=== PATIENT | male | born 2000 | race Hispanic/Latino ===

== ENCOUNTER 2020-09-01 09:41 | Emergency (ER) | payer OTHER, SELFPAY ==
[2020-09-01] MEDS ORDERED: Lidocaine 1% (PF) 30 ML VIAL ONE (12:44)
[2020-09-01] MEDS ORDERED: Boostrix 0.5 ML VIAL ONE (12:55)
== END 2020-09-01 14:01 | disposition home or self-care (01) ==
LOC: ERS 09:41
DX: L60.0 Ingrowing nail (principal)
CPT/HCPCS: 11750; 90471; 90715; J2001

== ENCOUNTER 2021-04-17 16:35 | Emergency (ER) | payer SELFPAY | END 2021-04-17 17:47 | disposition home or self-care (01) | LOC: ERS 16:35 | DX: L08.82 Omphalitis not of newborn (principal); F17.210 Nicotine dependence, cigarettes, uncomplicated | CPT/HCPCS: 99282 ==

== ENCOUNTER 2021-06-10 11:11 | Emergency (ER) | payer SELFPAY ==
[2021-06-10 12:57] LABS: Bacteria/HPF None Seen HPF (None Seen); Bilirubin Negative (Negative); Blood, Urine Negative (Negative); Clarity Extra Turbid (Clear); Glucose, Urine (Dipstick) Normal (Negative); Ketone, Urine Negative (Negative); Leukocyte Negative Leu/uL (Negative); Nitrite Negative (Negative); Protein, Urine (Dipstick) 30 mg/dL (Neg-Trace); RBC/HPF 0-3 HPF (0-3); Specific Gravity, Urine 1.028 (1.002-1.036); Squamous Epithelial None Seen HPF (0-3); Urobilinogen Normal mg/dL (Less than 2); WBC/HPF None Seen HPF (0-3)
[2021-06-11 19:46] LABS: Chlam.trachomatis by PCR,Urine Not Detected (NotDetected)
== END 2021-06-10 13:53 | disposition home or self-care (01) ==
LOC: ERS 11:11
DX: B37.42 Candidal balanitis (principal); F17.210 Nicotine dependence, cigarettes, uncomplicated
CPT/HCPCS: 81001; 87491; 87591; 99283

== ENCOUNTER 2022-12-25 10:58 | Emergency (ER) | payer SELFPAY ==
[2022-12-25 14:29] LABS: Bilirubin Negative (Negative); Blood, Urine Negative (Negative); Clarity Clear (Clear); Glucose, Urine (Dipstick) Normal (Negative); Ketone, Urine Negative (Negative); Leukocyte Negative Leu/uL (Negative); Nitrite Negative (Negative); Protein, Urine (Dipstick) Negative (Neg-Trace); Specific Gravity, Urine 1.004 (1.002-1.036); Urobilinogen Normal mg/dL (Less than 2)
[2022-12-25] MEDS ORDERED: Ibuprofen 800 MG TAB ONE (14:34)
[2022-12-26 11:22] LABS: Chlam.trachomatis by PCR,Urine Not Detected (NotDetected); GC N.gonorrhoeae PCR,UrineVOID Not Detected (NotDetected)
== END 2022-12-25 15:35 | disposition home or self-care (01) ==
LOC: ERS 10:58
DX: N50.812 Left testicular pain (principal)
CPT/HCPCS: 76870; 81003; 87491; 87591; 93976